=== PATIENT | female | born 1945 | race Caucasian/White ===

== ENCOUNTER 2018-12-02 06:58 | Inpatient (IN) | payer MEDICARE, OTHER ==
[2018-11-20 09:14] LABS: PROTIME 10.6 Seconds (9.20-11.50)
[2018-11-20 09:30] LABS: URINE BILIRUBIN NEGATIVE (Negative); URINE BLOOD TRACE (Negative); URINE CLARITY CLEAR; URINE COLOR YELLOW; URINE GLUCOSE-RANDOM NEGATIVE (Negative); URINE KETONES NEGATIVE (Negative); URINE LEUKOCYTES NEGATIVE (Negative); URINE NITRITE NEGATIVE (Negative); URINE PROTEIN 1+ (Negative); URINE SPECIFIC GRAVITY 1.025 (1.005-1.030); URINE UROBILINOGEN 0.2 E.U./dl (0.2-1.0)
--- NOTE | 2018-11-20 10:55 | EKG ---
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
[~2018-12-02] VITALS: Ht 152.4 cm; Wt 74.4 kg
[~2018-12-02 06:58] MED LIST: AMARYL2 MG PO; LISINOPRIL-HCT1 EAC2 PO; MAGOX 400400 MG PO; METFORMIN HCL500 MG PO; MULTI VITAMIN1 EACH PO; NASONEX17 GM NASAL; POTASSIUM99 M1 PO; ROSUVASTATIN CA20 MG PO; SYNTHROID100 MC1 PO; TRAVATAN Z5 ML OPHTHALMIC; TRULICITY1.5 MG/0.5 SUBQ; VITAMIN D31000 UNIT PO; ZOLOFT100 MG PO
[2018-12-02 07:51] VITALS: BP 123/72
[2018-12-02 14:30] VITALS: BP 110/59
[2018-12-02 20:05] VITALS: BP 115/56
[2018-12-03] VITALS: BP 120/57
[2018-12-03 04:00] VITALS: BP 135/60
[2018-12-03 05:19] LABS: HEMATOCRIT 31.3 % (37.0-47.0); HEMOGLOBIN 10.5 gm/dL (12.0-15.0)
[2018-12-03 08:30] VITALS: BP 107/52
[2018-12-03 16:00] VITALS: BP 126/54
[2018-12-03 17:27] VITALS: BP 126/54
[2018-12-03 20:30] VITALS: BP 106/52
[2018-12-04] VITALS: BP 109/42
[2018-12-04 04:00] VITALS: BP 104/51
[2018-12-04 05:03] LABS: HEMATOCRIT 30.3 % (37.0-47.0); HEMOGLOBIN 9.9 gm/dL (12.0-15.0)
[2018-12-04 07:30] VITALS: BP 107/43
[2018-12-04 16:17] VITALS: BP 95/43
[2018-12-05] VITALS: BP 67/43
[2018-12-05 04:00] VITALS: BP 80/42
[2018-12-05 08:30] VITALS: BP 82/46
[2018-12-05 13:15] LABS: ABSOLUTE EOSINOPHILS 0.1 thou/uL (0.0-0.7); ABSOLUTE LYMPHOCYTES 0.6 thou/uL (0.8-5.3); ABSOLUTE MONOCYTES 0.7 thou/uL (0.0-1.2); ABSOLUTE NEUTROPHILS 5.7 thou/uL (1.6-8.1); BASOPHILS 0.3 %; EOSINOPHILS 1.6 %; HEMATOCRIT 26.8 % (37.0-47.0); HEMOGLOBIN 8.7 gm/dL (12.0-15.0); LYMPHOCYTES 8.5 %; MCH 29.1 pg (26.0-34.0); MCHC 32.6 g/dL (28.0-37.0); MCV 89.2 fL (80.0-100.0); MONOCYTES 10.1 %; MPV 7.7 fl. (7.2-11.1); NUCLEATED RBCS 0 /100WBC; PLATELET COUNT* 155 thou/uL (150-400); POLYS 79.5 %; RBC 3.01 mil/uL (4.20-5.00); RDW-CV 15.7 % (10.5-14.5); WBC 7.2 thou/uL (4.0-11.0)
[2018-12-05 13:22] LABS: CREATININE 2.2 mg/dL (0.6-1.3); MAGNESIUM 2.6 mg/dL (1.8-2.4); POTASSIUM 4.1 mmol/L (3.5-5.1)
[2018-12-05 16:00] VITALS: BP 119/59
[2018-12-05 22:52] VITALS: BP 99/49
[2018-12-06 02:06] LABS: GLYCOHEMOGLOBIN (HGB A1C) 6.9 % (4.8-5.6)
[2018-12-06 05:08] LABS: ALBUMIN 1.8 g/dL (3.4-5.0); CALCIUM 7.4 mg/dL (8.5-10.1); PHOSPHORUS* 2.6 mg/dL (2.5-4.9); POTASSIUM 4.5 mmol/L (3.5-5.1)
[2018-12-06 09:00] VITALS: BP 98/45; BP 98/50
[2018-12-06 11:28] LABS: ABSOLUTE EOSINOPHILS 0.1 thou/uL (0.0-0.7); ABSOLUTE LYMPHOCYTES 0.5 thou/uL (0.8-5.3); ABSOLUTE MONOCYTES 0.6 thou/uL (0.0-1.2); ABSOLUTE NEUTROPHILS 3.7 thou/uL (1.6-8.1); BASOPHILS 0.2 %; EOSINOPHILS 2.3 %; HEMATOCRIT 27.9 % (37.0-47.0); HEMOGLOBIN 9.1 gm/dL (12.0-15.0); LYMPHOCYTES 10.1 %; MCH 29.2 pg (26.0-34.0); MCHC 32.5 g/dL (28.0-37.0); MCV 89.6 fL (80.0-100.0); MONOCYTES 11.8 %; MPV 7.4 fl. (7.2-11.1); NUCLEATED RBCS 0 /100WBC; PLATELET COUNT* 177 thou/uL (150-400); POLYS 75.6 %; RBC 3.11 mil/uL (4.20-5.00); RDW-CV 15.8 % (10.5-14.5); WBC 4.8 thou/uL (4.0-11.0)
[2018-12-06 12:12] LABS: URINE BILIRUBIN NEGATIVE (Negative); URINE BLOOD TRACE (Negative); URINE CLARITY CLEAR; URINE COLOR YELLOW; URINE GLUCOSE-RANDOM NEGATIVE (Negative); URINE KETONES NEGATIVE (Negative); URINE LEUKOCYTES-REFLEX NEGATIVE (Negative); URINE NITRITE-REFLEX NEGATIVE (Negative); URINE PROTEIN NEGATIVE (Negative); URINE UROBILINOGEN 0.2 E.U./dl (0.2-1.0)
[2018-12-06 15:42] VITALS: BP 130/50
[2018-12-06 15:43] VITALS: BP 130/50
[2018-12-06 20:00] VITALS: BP 116/49; BP 130/62
[2018-12-06 23:55] VITALS: BP 123/47
[2018-12-07 03:30] VITALS: BP 134/62
[2018-12-07 04:55] LABS: CALCIUM 8.3 mg/dL (8.5-10.1); CREATININE 1.4 mg/dL (0.6-1.3); POTASSIUM 4.8 mmol/L (3.5-5.1)
[2018-12-07 05:54] LABS: HEMOGLOBIN 8.1 gm/dL (12.0-15.0); MPV 7.7 fl. (7.2-11.1)
[2018-12-07 05:56] LABS: HEMATOCRIT 24.8 % (37.0-47.0); MCH 29.3 pg (26.0-34.0); MCHC 32.8 g/dL (28.0-37.0); MCV 89.4 fL (80.0-100.0); NUCLEATED RBCS 0 /100WBC; PLATELET COUNT* 192 thou/uL (150-400); RBC 2.78 mil/uL (4.20-5.00); RDW-CV 15.8 % (10.5-14.5); WBC 5.4 thou/uL (4.0-11.0)
[2018-12-07 06:40] LABS: ABSOLUTE EOSINOPHILS 0.2 thou/uL (0.0-0.7); ABSOLUTE LYMPHOCYTES 0.9 thou/uL (0.8-5.3); ABSOLUTE MONOCYTES 0.6 thou/uL (0.0-1.2); ABSOLUTE NEUTROPHILS 3.7 thou/uL (1.6-8.1); METAMYELOCYTES 2 %; PLATELET ESTIMATE ADEQUATE
[2018-12-07 07:48] VITALS: BP 122/57
[2018-12-07] MEDS ORDERED: SENNA S TABLET1 EACH PO (10:57)
[2018-12-07] MEDS ORDERED: METFORMIN HCL500 MG PO (10:57)
[2018-12-07] MEDS ORDERED: XARELTO10 MG PO (10:57)
[2018-12-07] MEDS ORDERED: IRON325 PO (10:57)
[2018-12-07] MEDS ORDERED: AZITHROMYCIN 2250 MG PO (10:57)
[2018-12-07] MEDS ORDERED: CEFDINIR300 MG PO (10:57)
[2018-12-07 11:09] VITALS: BP 126/54
[2018-12-07] MEDS ORDERED: PERCOCET PO (11:40)
--- NOTE | 2018-12-09 08:39 | OP ---
[facility] [address] [place] [address] OPERATIVE REPORT Name: DUDLEY ALVARENGA Room: [address] M.R.#: [id number] Admission: 12/02/18 Attend Phys: Taryn Villanueva Discharge: 12/07/18 Date of : 41 Report #: [id number] THIS REPORT FOR: //name// CC: Yoselyn Mccall DATE OF SERVICE: 12/02/2018 PREOPERATIVE DIAGNOSIS: Left knee osteoarthritis. POSTOPERATIVE DIAGNOSIS: Left knee osteoarthritis. PROCEDURE: Left total knee arthroplasty with Navio. SURGEON: Erasto Anderson II, DO. [employer]: ADIS Mccullough. ANESTHESIA: General endotracheal. ESTIMATED BLOOD LOSS: 50 mL. ANTIBIOTICS: Ancef preoperatively. DRAINS: Medium Hemovac. COMPLICATIONS: None. CONDITION: Stable to recovery room. IMPLANTS: Listed in operative record and progress note. BRIEF HISTORY: The patient is seen in the preoperative area. Preoperative H and P was performed. Site was marked, questions were answered. Risks and benefits were discussed with the patient in detail about surgery. The patient wished to proceed, assuming all risks. DESCRIPTION OF PROCEDURE: The patient was taken to the operative suite and placed supine on the operating table and given appropriate anesthesia. A well-padded tourniquet was applied to the upper thigh, which was inflated to 300 mmHg after gravity exsanguination for duration of the procedure. The operative knee was sterilely prepped and draped. Surgery began by midline incision. This was carried down to the subcutaneous tissues. A medial parapatellar arthrotomy was performed and carried down to bone. The patella was then everted and excess soft tissue removed from around the femur as well as osteophytes. The [address] [address] OPERATIVE REPORT Name: DUDLEY ALVARENGA Room: [address]#: [id number] Admission: 12/02/18 Attend Phys: Taryn Villanueva Discharge: 12/07/18 Date of : 41 Report #: [id number] and tibial tracker alignment guides were applied. The knee was then registered through the WeLab software and the robotic hand-piece was activated, establishing in the cutting sites, the robotic hand-piece was utilized on the femur and the tibia. The femoral cutting block was then applied, checked with the WeLab software for rotational alignment, pinned in appropriate position and appropriate cuts were made. A 4-in-1 cutting block was then applied, checked for rotational alignment with the Navio software, pinned in appropriate position and appropriate cuts were made. The tibia was then exposed as excess meniscus was removed. Retractor was placed on collateral ligaments. The tibial cutting block was then applied, checked for rotational alignment with the WeLab robotic hand-piece as well as slope and appropriate cut was made. The tibial bone was removed. The tibial baseplate was then applied, checked for rotational alignment with the drop rosie, pinned in appropriate position. The femur was then applied and box cut was reamed. This was then trialed with the appropriate spacer, which showed excellent fit and fill and excellent stability of the knee through all range of motion. The patella was then reamed in appropriate fashion and sized to appropriate size. Three peg holes were drilled. It was then trialed and showed excellent flexion, extension, excellent tracking of the patella within the groove. These trials were removed. The tibia was punched in appropriate fashion. Bone ends were cleansed with Pulsavac irrigation and cement was mixed and applied to final implants. These were then malleted into position and held the knee in extension and compressed to allow cement to cure. After it cured, excess cement was removed using [place] and osteotome. Wound was then copiously irrigated and the final spacer was then malleted in position. The tourniquet was deflated. Hemostasis was obtained with electrocautery. Pain cocktail was injected. PRP gel was sprayed throughout the internal aspects of the knee. Medium Hemovac drain was then applied. Capsule was closed with #2 FiberWire and #1 Vicryl in [id number] fashion. Skin was closed with 2-0 Vicryl and running 3-0 Monocryl and the portal sites were closed with nylon. Dermabond and sterile dressing applied. Kenneth wrap and Polar Care applied. The patient was transported to recovery room in stable condition. Counts were correct throughout the procedure. <ELECTRONICALLY SIGNED> By: Erasto Anderson II, DO 12/09/18 0839 0827 0850Erasto Anderson II, DO /nt
== END 2018-12-07 13:05 | disposition home health service (06) | DRG 469 ==
LOC: M.TBA 06:58 → M.PRE 08:08 → M.ORTHSURG 14:11
PROVIDERS: Family Medicine; Orthopaedic Surgery; ADMIT Internal Medicine
PROC: 0SRD0J9 Replacement of Left Knee Joint with Synthetic Substitute, Cemented, Open Approach (ICD-10-PCS; principal; 2018-12-02)
PROC: 8E0Y0CZ Robotic Assisted Procedure of Lower Extremity, Open Approach (ICD-10-PCS; 2018-12-02)
DX: M17.12 Unilateral primary osteoarthritis, left knee (principal); J96.00 Acute respiratory failure, unspecified whether with hypoxia or hypercapnia; J15.6 Pneumonia due to other Gram-negative bacteria; D62 Acute posthemorrhagic anemia; N17.9 Acute kidney failure, unspecified; F32.9 Major depressive disorder, single episode, unspecified; E11.22 Type 2 diabetes mellitus with diabetic chronic kidney disease; I12.9 Hypertensive chronic kidney disease with stage 1 through stage 4 chronic kidney disease, or unspecified chronic kidney disease; E11.40 Type 2 diabetes mellitus with diabetic neuropathy, unspecified; Z96.651 Presence of right artificial knee joint; H40.9 Unspecified glaucoma; D50.9 Iron deficiency anemia, unspecified; N18.3 Chronic kidney disease, stage 3 (moderate); D63.8 Anemia in other chronic diseases classified elsewhere; Z81.8 Family history of other mental and behavioral disorders; Z79.899 Other long term (current) drug therapy; Z88.8 Allergy status to other drugs, medicaments and biological substances; Z98.51 Tubal ligation status; Z85.820 Personal history of malignant melanoma of skin